=== PATIENT | female | born 1985 | race Caucasian/White ===

== ENCOUNTER 2025-01-16 15:45 | Outpatient (CLI) | payer BC, SELFPAY ==
[2025-01-16 16:53] LABS: C.Diff PCR (Lab) NEGATIVE (Negative)
== END 2025-01-16 15:46 | disposition home or self-care (01) ==
LOC: LAB 15:48
PROVIDERS: Visit Provider Nurse Practitioner
DX: Z01.89 Encounter for other specified special examinations (principal)
CPT/HCPCS: 83993; 87493

== ENCOUNTER → 2025-01-21 15:51 | Outpatient (BNVA) | payer BC, SELFPAY | PROVIDERS: PCP Nurse Practitioner Family; Visit Provider Nurse Practitioner Family | DX: R07.9 Chest pain, unspecified (principal); I10 Essential (primary) hypertension; K44.9 Diaphragmatic hernia without obstruction or gangrene; Z79.899 Other long term (current) drug therapy | CPT/HCPCS: 71046; 80053; 80061; 81003; 82306; 83036; 83690; 84439; 84443; 85025 ==

== ENCOUNTER → 2025-02-20 10:36 | Outpatient (BNVA) | payer BC, SELFPAY | PROVIDERS: PCP Nurse Practitioner Family; Visit Provider Nurse Practitioner Family | DX: M54.40 Lumbago with sciatica, unspecified side (principal); M25.551 Pain in right hip; M25.552 Pain in left hip; M25.752 Osteophyte, left hip; M25.751 Osteophyte, right hip | CPT/HCPCS: 72114; 73502 ==

== ENCOUNTER → 2025-05-12 15:18 | Outpatient (BNVA) | payer BC, SELFPAY | PROVIDERS: PCP Nurse Practitioner Family; Visit Provider Nurse Practitioner Family | DX: D89.89 Other specified disorders involving the immune mechanism, not elsewhere classified (principal) | CPT/HCPCS: 86038; 86200; 86431 ==